=== PATIENT | male | born 1980 | race Caucasian/White ===

== ENCOUNTER 2017-08-14 07:39 | Emergency (ER) | payer BC ==
[2017-08-14] MEDS ORDERED: HYDROcodone/Acetaminophen 10/325 mg Tablet ONE (07:57)
[2017-08-14] MEDS ORDERED: Dexamethasone 4 mg/ml Vial ONE (07:57)
== END 2017-08-14 08:25 | disposition home or self-care (01) ==
LOC: BURERS 07:39
DX: J44.1 Chronic obstructive pulmonary disease with (acute) exacerbation (principal); I10 Essential (primary) hypertension; F17.210 Nicotine dependence, cigarettes, uncomplicated; Z79.899 Other long term (current) drug therapy; Z79.891 Long term (current) use of opiate analgesic
CPT/HCPCS: 99282; J1100

== ENCOUNTER 2018-02-25 13:27 | Emergency (ER) | payer BC | END 2018-02-25 13:52 | disposition home or self-care (01) | LOC: BURERS 13:27 | DX: L50.9 Urticaria, unspecified (principal); F17.220 Nicotine dependence, chewing tobacco, uncomplicated | CPT/HCPCS: 99282 ==

== ENCOUNTER 2021-12-07 08:07 | Emergency (ER) | payer BC ==
[2021-12-07] MEDS ORDERED: Morphine 10 MG/ML VIAL ONE (09:15)
[2021-12-07] MEDS ORDERED: Ondansetron ODT 4 MG TAB ONE (09:24)
== END 2021-12-07 09:30 | disposition home or self-care (01) ==
LOC: BURERS 08:07
DX: I83.028 Varicose veins of left lower extremity with ulcer other part of lower leg (principal); F17.220 Nicotine dependence, chewing tobacco, uncomplicated
CPT/HCPCS: 96372; 99283; J2270; Q0162